=== PATIENT | female | born 1995 ===

== ENCOUNTER 2021-12-26 09:07 | Outpatient (CLI) | payer OTHER | END 2021-12-26 10:10 | disposition home or self-care (01) | LOC: PRENATAL 09:07 | PROVIDERS: ATTEND Obstetrics & Gynecology Maternal & Fetal Medicine | DX: Z03.79 Encounter for other suspected maternal and fetal conditions ruled out (principal) ==

== ENCOUNTER 2022-01-24 16:08 | Outpatient (CLI) | payer OTHER | END 2022-01-24 16:56 | disposition home or self-care (01) | LOC: PRENATAL 16:08 | PROVIDERS: ATTEND Obstetrics & Gynecology Maternal & Fetal Medicine | DX: O35.0XX0 Maternal care for (suspected) central nervous system malformation in fetus, not applicable or unspecified (principal); O35.3XX0 Maternal care for (suspected) damage to fetus from viral disease in mother, not applicable or unspecified; Z14.8 Genetic carrier of other disease; Z3A.20 20 weeks gestation of pregnancy ==

== ENCOUNTER 2022-05-08 13:30 | Inpatient (IN) | payer OTHER ==
[~2022-05-08] VITALS: Ht 175.3 cm; Wt 80.3 kg
[2022-05-19] MEDS ORDERED: METRONIDAZOLE500 MG PO (01:12)
[2022-05-21] MEDS ORDERED: PRENATABS FA T1 EACH PO (09:13)
== END 2022-05-23 14:20 | disposition home or self-care (01) | DRG 807 ==
LOC: OB/GYN 05-21 06:13 → LDR 05-21 06:13 → OB/GYN 05-21 12:30
PROVIDERS: ADMIT Obstetrics & Gynecology; ATTEND Obstetrics & Gynecology
PROC: 10E0XZZ Delivery of Products of Conception, External Approach (ICD-10-PCS; principal; 2022-05-21)
PROC: 3E033VJ Introduction of Other Hormone into Peripheral Vein, Percutaneous Approach (ICD-10-PCS; 2022-05-21)
PROC: 4A1HXCZ Monitoring of Products of Conception, Cardiac Rate, External Approach (ICD-10-PCS; 2022-05-21)
DX: O99.824 Streptococcus B carrier state complicating childbirth (principal); Z37.0 Single live birth; Z3A.39 39 weeks gestation of pregnancy; Z20.822 Contact with and (suspected) exposure to COVID-19

== ENCOUNTER 2022-05-19 00:56 | Outpatient (CLI) | payer OTHER ==
[2022-05-19] MEDS ORDERED: METRONIDAZOLE500 MG PO (01:12)
[2022-05-21] MEDS ORDERED: PRENATABS FA T1 EACH PO (09:13)
== END 2022-05-21 10:05 | disposition left against medical advice (07) ==
LOC: OBS/DEL 00:56 → PRENATAL 05-24 10:00
PROVIDERS: ATTEND Obstetrics & Gynecology
DX: O26.893 Other specified pregnancy related conditions, third trimester (principal); Z3A.39 39 weeks gestation of pregnancy